=== PATIENT | female | born 1965 | race Caucasian/White ===

== ENCOUNTER 2016-08-25 08:53 | Observation (INO) | payer OTHER ==
[~2016-08-25] VITALS: Ht 167.6 cm; Wt 100.0 kg
[~2016-08-25 08:53] MED LIST: DULO1CAP3; LEVO125T4 PO; OXYC15TA PO; OXYMTAB2 PO
[2016-08-25] MEDS ORDERED: INSULIN HUMAN REGULAR 1,000 UNITS/10 ML VIAL SQ PRN (09:30)
[2016-08-25] MEDS ORDERED: METOPROLOL TARTRATE 25 MG TAB PO PRN (09:30)
[2016-08-25 09:52] VITALS: BP 124/97; PULSE 90; RESP 16; TEMP 98.5; O2SAT 96
[2016-08-25] MEDS ORDERED: SODIUM CHLORID 0.9% 500 ML IV SCH (10:00)
[2016-08-25] MEDS ORDERED: LACTATED RINGER'S 1000 ML IV SCH (10:00)
[2016-08-25] MEDS ORDERED: LACTATED RINGER'S 1000 ML INJ 1,000 ML IV ONE (12:00)
[2016-08-25] MEDS ORDERED: ONDANSETRON HCL 4 MG/2 ML VIAL IV PUSH ONE (12:00)
[2016-08-25] MEDS ORDERED: PROPOFOL 200 MG/20 ML AMP IV ONE (12:00)
[2016-08-25] MEDS ORDERED: MICROFIBRILLAR COLLAGEN HEMOSTAT 70 X 35 MM BANDAGE ONE (12:21)
[2016-08-25] MEDS ORDERED: THROMBIN (TOPICAL) 5,000 UNIT VIAL ONE (12:22)
[2016-08-25] MEDS ORDERED: ACETAMINOPHEN 1000 MG/100 ML VIAL IV ONE (12:27)
[2016-08-25] MEDS ORDERED: MIDAZOLAM HCL 2 MG/2 ML VIAL ONE (12:27)
[2016-08-25] MEDS ORDERED: ARTIFICIAL TEARS OPTH OINT 3.5 APPLIC/3.5 GM TUBO ONE (12:27)
[2016-08-25] MEDS ORDERED: fentaNYL CITRATE 250 MCG/5 ML AMP ONE (12:27)
[2016-08-25] MEDS ORDERED: GENTAMICIN SULFATE 80 MG/2 ML VIAL ONE (12:36)
[2016-08-25] MEDS ORDERED: ceFAZolin INJ 1,000 MG VIAL IV ONE (13:04)
[2016-08-25] MEDS ORDERED: GELFOAM SIZE 100 OTHER ONE (13:09)
[2016-08-25] MEDS ORDERED: VANCOMYCIN HCL 1000 MG VIAL OTHER ONE (13:09)
[2016-08-25] MEDS: NS + KCL 20 MEQ INJ 1,000 ML IV SCH (16:12)
[2016-08-25] MEDS ORDERED: MORPHINE SULFATE 4 MG/ML INJ IV PUSH PRN ×2 (16:15)
[2016-08-25] MEDS ORDERED: MENTHOL LOZENGE SUCK-ON PRN (16:15)
[2016-08-25] MEDS ORDERED: SODIUM CHLORIDE 0.9% FLUSH 5 ML FLUSH IVF PRN (16:15)
[2016-08-25] MEDS ORDERED: HYDR-3533 PO (16:15)
[2016-08-25] MEDS ORDERED: BISACODYL 10 MG SUPP PR PRN (16:15)
[2016-08-25] MEDS ORDERED: ACETAMINOPHEN 325 MG TAB PO PRN (16:15)
[2016-08-25] MEDS: ceFAZolin 2 GM PREMIX 50 ML IV SCH (16:15)
[2016-08-25] MEDS ORDERED: ONDANSETRON HCL 4 MG/2 ML VIAL IV PRN (16:15)
[2016-08-25] MEDS: DEXAMETHASONE SOD PHOS 4 MG/ML VIAL IV SCH ×2 (16:15→21:35)
--- NOTE | 2016-08-25 16:20 | PD.OP ---
Operative Report Date of Surgery: Aug 25, 2016 Preoperative Diagnosis: Cervical spinal stenosis Postoperative Diagnosis: Cervical spinal stenosis Procedure: C5-6, C6-7 anterior cervical discectomy, interbody arthodhesis using PEEK cage filled with autologous bone graft, Simplicity plate and screws. Anesthesia: general Surgeon: Roland Jackman Dentist(s): Jennifer Pleitez Operation and Findings: INDICATIONS FOR THE PROCEDURE Ms Vaughan is a 51 year-old female who presented with intractable neck pain and clinical evidence of C6 and C7 upper extremity radiculopathy. She was found to have significant spondylosis with stenosis. She has failed maximum nonsurgical management including multiple modalities of conservative treatment as well as pain management interventions by an interventional pain specialist. A surgical decompression and arthrodhesis were indicated. The [id number] details of the procedure, indications, alternatives, risks and potential complications were fully discussed with her. The patient fully understood. All The questions were answered. No guarantees were given. The patient voiced requesting the procedure and provided informed consents. The patient was offered the alternative of delaying the procedure and continuing with nonsurgical management. DETAILS OF THE SURGICAL PROCEDURE After the induction of general anesthesia, endotracheal intubation was performed. A Reardon catheter, bilateral NICOLE hose, and sequential compression devices were placed and kept throughout the procedure. Placement of electrodes for neurophysiological monitoring of the somato sensorial evoked potentials. motor evoked potentials, and EMG as well as laryngeal nerve monitoring was achieved. The patient was positioned supine on a Wade table with the head over a gel doughnut. All pressure points were carefully padded with eggcrate mattress. The eyes were tapped shut after ointment was applied by the anesthesiologist to prevent corneal abrasion. A Drake hugger was placed over the exposed lower body to maintain control of the core body temperature. The electrophysiological team placed the needles and electrodes in their proper location and baseline SSEP's and motor evoked potentials were registered prior and after positioning and endotracheal intubation. The anterior cervical region was prepped and draped in the usual sterile fashion. A localizing x-ray was performed with a C-arm. The surgical procedure was performed in several steps as follow: SURGICAL APPROACH A skin incision was made along the inferior cervical crease with a #10 blade. The dissection was carried out through the platysma exposing the sternocleidomastoid muscle. The cervical spine was approached following the fascial layers of the neck just medial to the anterior border of the sternocleidomastoid and carotid sheath by a combination of sharp and dull dissection. The omohyoid muscle was identified and carefully dissected laterally and the deep cervical fascia was carefully opened. The longus colli muscles were retracted to each side of the midline. A marker was placed at the disc space C5-6 and a cross-table lateral x-ray performed with a C-arm. SURGICAL DECOMPRESSION In order to decompress the anterior surface of the spinal cord it was necessary to preform a microsurgical resection of the disk at C5-6 and C6-7. At this point in the procedure the operating microscope was draped in the usual sterile fashion and brought to the field. The rest of the surgical procedure was performed using microdissection technique with the exception of the closure. Under the operative microscopic, a self-retaining retractor was placed underneath the longus colli muscle. Anterior osteophite spurs werte carefully removed with the Leksell. The annulus at C5-6 and C6-7 were incised with a #15 blade and microdiscectomy was then carefully carried out using angled curets and pituitary forceps. There were osteophitic/disk complexes mass effect and compression of the dural sac and nerve roots. The posterior longitudinal ligament was then elevated with an angled curet and incised with a 15 bladed knife. A careful resection of the posterior longitudinal ligament was carried out using a thin footplate 2 mm Kerrison. A nerve hook was used to assess the epidural space behind the vertebral bodies C5, C6, and C7 in search for residual disk fragments. The margins of the posterior endplates at C5-6 and C6- 7 were carefully drilled and undercut with a TPS drill under high magnification. The decompression was then carried out laterally, and a bilateral foraminotomy was performed with a 2mm thin foot Kerrison. Then the vertebral bodies above and below the disk space were undercut using a 2 mm thin foot Kerrison. The epidural space was the systematically assessed with a nerve hook in search for disk fragments of scarr tissue. An excellent decompression was achieved in both, the dural sac and bilateral exiting nerve roots. The incision was then irrigated with a large amount of antibiotic solution INTERBODY ARTHRODHESIS In order to avoid collapse of the disk space which would result in bilateral foraminal stenosis, and to increase the chances of a successful fusion, it was necessary to place an interbody cage filled with autologous bone. At this point of the procedure, the superior and inferior endplates were then evenly decorticated with a TPS drill. The use of a drill in combination with a curette allowed me to systematically remove the cartilaginous endplates, exposing healthy bone for the interbody arthrodesis. Fourteen millimeters distraction pins were then placed at the vertebral bodies adjacent to the disk space, and gentle distraction was applied. The size of the interbody cage was then assessed using different size spacers, and a rasp was used to ensure no residual cartilage. A PEEK cage of the appropriate size was selected, and the interbody arthrodesis was then preformed by carefully impacting a PEEK cage filled with autologous bone graft to the disc spaces C5-6 and C6-7. An excellent position of the cage was achieved. This was was confirmed anatomically by feeling the space posterior to the implant and distance to the anterior surface of the dural sac. Radiological confirmation of the position was performed with a cross lateral xray performed with the C-arm. INTERNAL INSTRUMENTAL FIXATION Once that the interbody device was in an appropriate position, it was necessary to stabilize the spine with anterior instrumentation. Anterior instrumentation has demonstrated to increase the rate of fusion, accelerate the patient's recovery, and decrease the rate of failed interbody grafts. At this point of the procedure, the distance between the vertebral bodies was carefully measures, and a Simplicity plate was brought to the field and presented in front of the vertebral bodies C5, C6, and C7. Electronic Sensing Equipment Assembler holes were then drilled using the TPS drill, and the plate was then secured to the spine using self-drilling, self-tapping screws. Initially, the inferior right screw was inserted, followed by placement of the contralateral upper screw. The remanding screws were sequentially placed in a contra-lateral fashion. A proper purchase was achieved with all screws and the position of the cage, plate and screws, and alignment of the spine was assessed anatomically by direct visualization, and radiologically by performing a cross lateral xray of the cervical spine with the C-arm. CLOSURE The incision was irrigated with several liters of antibiotic solution. Hemostasis was achieved with a bipolar. The screws were locked to prevent backing out. A 7 mm Wade-Patel drain was left in the prevertebral space and externalized through a separate stab incision. The incision was then closed in layers. 3-0 Vicryl with interrupted sutures was used to close the platysma and subcutaneous tissue. The skin was closed with 4-0 running subcuticular Vicryl and glue was applied to the skin. The drain was secured with a 3-0 nylon. At the end of the procedure the sponge, needle and instrument counts were all correct. The estimated blood loss was less than 70-80 cc. No blood transfusion was given. No intraoperative complications occurred. The patient received prophylactic antibiotics. The patient was then extubated and transferred to the recovery room in stable condition. Roland Jackman MD Aug 25, 2016 16:20
[2016-08-25] MEDS ORDERED: *morphine SULFATE 8 MG/ML PERIprocedure ONLY ONE ×3 (16:36→16:58)
[2016-08-25] MEDS ORDERED: *HYDROmorphone PF 1 MG VIAL PERIprocedural Use ONLY ONE ×4 (17:08→17:40)
[2016-08-25] MEDS ORDERED: HYDROmorphone HCL PF 2 MG/ML VIAL IV PRN (18:15)
[2016-08-25] MEDS ORDERED: HYDROmorphone HCL PF 1 MG/ML VIAL IV PRN (18:15)
--- NOTE | 2016-08-25 19:19 | RADRPT ---
EXAM DATE/TIME: 08/25/2016 12:39 [facility] COMPARISON: No previous studies available for comparison. INDICATIONS : Fusion C5,C6 and C6,C7 with screw and plate placement. MEDICAL HISTORY : None. SURGICAL HISTORY : None. ENCOUNTER: Initial ACUITY: 1 day PAIN SCORE: Non-responsive. LOCATION: Cervical spine. FINDINGS: Two projection examination was performed. Postsurgical changes following anterior cervical fusion fr om C5-C7 are noted. There is an anterior fusion plate as well as vertebral body cages. Vertebral bodi es remain satisfactorily aligned. CONCLUSION: Satisfactory postoperative appearance of the cervical spine following anterior cervical fusion from C 5-C7. Linwood Orlando MD on August 25, 2016 at 19:16 Board Certified Radiologist. This report was verified electronically.
[2016-08-25] MEDS: CYCLOBENZAPRINE HCL 10 MG TAB PO PRN (20:03)
[2016-08-25] MEDS: DOCUSATE SODIUM 100 MG CAP PO SCH (20:03)
[2016-08-25] MEDS: ACETAMINOPHEN/HYDROcodone 325 MG/10 MG TAB PO PRN (20:04)
--- NOTE | 2016-08-25 20:06 | HHI.DCPOC ---
Discharge Care Plan Diagnosis: (1) Status post cervical arthrodesis Goals to Promote Your Health * To prevent worsening of your condition and complications * To maintain your health at the optimal level Directions to Meet Your Goals Take your medications as prescribed Follow your dietary instruction Follow activity as directed Keep your appointments as scheduled Take your immunizations and boosters as scheduled If your symptoms worsen call your PCP, if no PCP go to Urgent Care Center or Emergency Room Smoking is Dangerous to Your Health. Avoid second hand smoke Call the 24-hour hour crisis hotline for domestic abuse at Pina Caruso Aug 25, 2016 20:06
[2016-08-25] MEDS ORDERED: SODIUM CHLORIDE 0.9% FLUSH 5 ML FLUSH IVF SCH (21:00)
[2016-08-25 21:08] VITALS: BP 126/86; PULSE 78; RESP 20; TEMP 98.8; O2SAT 93
[2016-08-25] MEDS: OXYMORPHONE 10 MG PO SCH (21:34)
[2016-08-26] MEDS: ceFAZolin 2 GM PREMIX 50 ML IV SCH ×2 (00:19→09:54)
[2016-08-26] MEDS: ACETAMINOPHEN/HYDROcodone 325 MG/10 MG TAB PO PRN ×3 (00:58→09:30)
[2016-08-26 01:02] VITALS: BP 128/77; PULSE 73; RESP 20; TEMP 98.5; O2SAT 94
[2016-08-26] MEDS: DEXAMETHASONE SOD PHOS 4 MG/ML VIAL IV SCH ×2 (04:10→09:54)
[2016-08-26] MEDS: CYCLOBENZAPRINE HCL 10 MG TAB PO PRN (05:12)
[2016-08-26] MEDS: NS + KCL 20 MEQ INJ 1,000 ML IV SCH (05:13)
[2016-08-26 05:35] VITALS: BP 99/68; PULSE 78; RESP 20; TEMP 96.8; O2SAT 93
[2016-08-26 08:00] VITALS: BP 100/71; PULSE 67; RESP 16; TEMP 97.5; O2SAT 93
[2016-08-26] MEDS ORDERED: LEVOTHYROXINE SODIUM 125 MCG TAB PO SCH (09:00)
[2016-08-26] MEDS ORDERED: PANTOPRAZOLE SOD 40 MG DELAYED RELEASE TAB PO SCH (09:00)
[2016-08-26] MEDS: OXYMORPHONE 10 MG PO SCH (09:53)
[2016-08-26] MEDS: DOCUSATE SODIUM 100 MG CAP PO SCH (09:53)
[2016-09-12] MEDS ORDERED: MEDR4PAK PO (10:24)
== END 2016-08-26 16:57 | disposition home or self-care (01) ==
LOC: HSDC 08:53 → HSDI 16:14 → N06B 18:56
PROVIDERS: ADMIT Neurological Surgery; ATTEND Neurological Surgery
DX: M48.02 Spinal stenosis, cervical region (principal); M47.22 Other spondylosis with radiculopathy, cervical region; M50.122 Cervical disc disorder at C5-C6 level with radiculopathy; M50.123 Cervical disc disorder at C6-C7 level with radiculopathy
CPT/HCPCS: 00600; 20936; 22551; 22552; 22845; 22854; 72040; 76000; 97163; C1713; G0378; G8987; G8988; J0131; J0690; J1100; J1170; J1580; J2250; J2270; J2405; J3010; J3370; J3480; J7120; L0150; L0172